=== PATIENT | female | born 1965 | race Caucasian/White ===

== ENCOUNTER → 2016-06-13 | Outpatient (CLI) | payer BC ==
[~2016-06-13] MED LIST: ESCI1TAB10 PO; OXYC-57 PO
== END | disposition home or self-care (01) ==
LOC: C.PAPS 11:31
PROVIDERS: ATTEND Nurse Practitioner Family
DX: Z01.419 Encounter for gynecological examination (general) (routine) without abnormal findings (principal)

== ENCOUNTER → 2016-06-15 | Outpatient (CLI) | payer BC ==
--- NOTE | 2016-06-15 08:58 | Discharge Instructions ---
Discharge Instructions Procedure Procedure Date: Jun 15, 2016. Reason for visit: Left Mass. Discharge Discharge Date: Jun 15, 2016. Discharge Diagnosis: status post breast biopsy Instructions Activity Recommendations: Additional Limitations (see below) Return to School/Work: no limitations Recommended Home Diet: No Limitations Provider Instructions: ACTIVITY RECOMMENDATIONS: * No lifting, pushing, pulling or exercising the affected side for three days. RETURN TO SCHOOL/WORK: * You may return to work/school after the procedure, but do not perform any strenuous activities for 24 to 48 hours. MEDICATIONS: * Tylenol (two 325 mg) every four to six hours if needed for mild pain (if not allergic to Tylenol). DIET: * Resume previous diet. SPECIAL CARE INSTRUCTIONS: * Keep biopsy site dry for 24 hours. May shower after 24 hours, but do not soak (bathe) incision. * May remove Tegaderm (plastic patch) tomorrow AFTER showering. * Leave the steri-strips on for one week. Allow the steri-strips to fall off by themselves. If not off after one week, you may remove them. You may place a Bandaid crosswise over the strips, if desired. * Apply ice 10 minutes on and 10 minutes off as needed. * Wear a bra at bedtime to sleep more comfortably for 2-3 days. * Your referring physician should have the results after approximately 5 to 7 business days. * Call for unusual bleeding, fever, drainage, etc or if you have any questions call during normal business hours or after hours call Dr Botello, [phone]. FOLLOW UP VISIT: Follow-up with Referring Physician as scheduled. Allergies Coded Allergies: Codeine (Verified Allergy, Mild, 07/16/09) Alexandro Hoskins Recommendations: Call your doctor if: * Temperature above 101 degrees * Pain not relieved by pain medicine ordered * There is increased drainage or redness from any incision * You have any unanswered questions or concerns. Your Doctors Instructions noted above were prepared by provider Indira Botello. Patient Signature Section: Patient Instructions Signature Page Omaira Guajardo Patient (or Guardian) Signature/Date: I have read and understand the instructions given to me by my caregivers. Caregiver/RN/Doctor Signature/Date: The above-named patient and/or guardian has received patient instructions on this date. + Original Patient Signature Page (only) stays with chart. Please make copy for patient.
--- NOTE | 2016-06-15 13:45 | MAMMOGRAPHY REPORT ---
THIS REPORT HAS BEEN AMENDED. ULTRASOUND GUIDED BIOPSY LEFT BREAST: 06/15/2016 CLINICAL HISTORY: Abnormal hypoechoic region in the left 2 o'clock breast. PATIENT CONSENT: The procedure, risks and benefits were discussed with the patient and informed writ ten consent was obtained. A timeout was performed immediately prior to the procedure. PROCEDURE DESCRIPTION: With ultrasound guidance, aseptic technique, and lidocaine as the local anest hetic (1% lidocaine to anesthetize the skin and 1% lidocaine with epinephrine to anesthetize the jean claude per tissues), the area of concern in the left 2:00 breast was sampled 5 times with a 14-gauge Achiev e biopsy needle. Immediately thereafter, with ultrasound guidance, aseptic technique, and lidocain e as the local anesthetic, a metallic localizer clip was placed at the biopsy site. Direct pressure was applied to the site immediately post procedure and hemostasis was achieved. Postprocedure unil ateral mammograms were performed to confirm placement of the clip in the expected location of the br east mass. The patient tolerated the procedure without complication. She was given wound care inst ructions. The specimens were sent to pathology for analysis. COMPARISON: Comparison is made to exams dated: 06/07/2016 ultrasound, 06/07/2016 mammogram, 016 mammogram, 11/06/2012 mammogram, 05/15/2012 mammogram, and 11/03/2011 mammogram - [facility]. IMPRESSION: ULTRASOUND GUIDED BIOPSY Ultrasound-guided core needle biopsy of the hypoechoic region in the left 2:00 breast, with clip naty cement. The patient will receive pathology results from her referring physician. Indira Botello M.D. ah/:06/15/2016 09:03:45 Manufacturers Representative: Terra Mcgowan [facility] AMENDMENT: 06/28/2016 Indira Botello M.D. Pathology from ultrasound-guided biopsy of the left 2:00 hypoechoic region was reviewed on 06/28/2016 . The pathology shows benign fibrocystic changes without evidence of malignancy. The needle was sh own to pass through the area multiple times on the biopsy images. Recommend follow-up diagnostic to mosynthesis mammograms of the left breast and possible ultrasound in 6 months to ensure stability.
--- NOTE | 2016-06-15 13:47 | MAMMOGRAPHY REPORT ---
UNILATERAL LEFT DIGITAL DIAGNOSTIC MAMMOGRAM: 06/15/2016 CLINICAL HISTORY: Status post ultrasound-guided biopsy of the left 2:00 hypoechoic region. TECHNIQUE: Postprocedural left CC and ML views were obtained. COMPARISON: Comparison is made to exams dated: 06/07/2016 mammogram, 06/01/2016 mammogram, 3 mammogram, and 05/15/2012 mammogram - [facility]. BREAST COMPOSITION: There are scattered areas of fibroglandular density in the left breast. FINDINGS: A new biopsy marker clip is seen in the left upper outer quadrant at the site of the biop sied hypoechoic region in the left breast at 2:00. The biopsy clip is located at the site of the ar chitectural distortion seen mammographically, indicating good correlation between the biopsied sonog raphic finding and the mammographic distortion. No significant postbiopsy hematoma is seen. IMPRESSION: POST PROCEDURE IMAGING FOR MARKER PLACEMENT New biopsy marker clip status post ultrasound guided biopsy of the left 2:00 hypoechoic region. Pat hology results are pending. Approximately 10% of breast cancers are not detected with mammography. A negative mammographic repor t should not delay biopsy if a clinically suggestive mass is present. Indira Botello M.D. /:06/15/2016 09:09:49 Railroad Car Cleaner: Terra Mcgowan, [facility] BI-RADS Code: Post Procedure Imaging For Marker Placement
== END | disposition home or self-care (01) ==
LOC: C.MAMM 08:29
PROVIDERS: ATTEND Obstetrics & Gynecology
DX: R92.8 Other abnormal and inconclusive findings on diagnostic imaging of breast (principal); N63 Unspecified lump in breast

== ENCOUNTER → 2017-01-29 | Outpatient (CLI) | payer BC ==
[~2017-01-29] MED LIST changes: -OXYC-57 PO
--- NOTE | 2017-01-29 15:25 | MAMMOGRAPHY REPORT ---
UNILATERAL LEFT DIGITAL DIAGNOSTIC MAMMOGRAM TOMOSYNTHESIS WITH CAD AND TARGETED LEFT ULTRASOUND: 01/10 CLINICAL HISTORY: 51-year-old woman presents for follow-up in the left breast. She was initially fou nd to have possible area of architectural distortion in the left upper outer posterior breast with hy poechoic shadowing area thought to correspond in the 2:00 left breast on ultrasound. This area was s ubsequently biopsied and yielded benign fibrocystic changes, no evidence of malignancy. TECHNIQUE: Left breast tomosynthesis in addition to standard 2D mammography was performed. Current st udy was also evaluated with a Computer Aided Detection (CAD) system. COMPARISON: Comparison is made to exams dated: 06/15/2016 ultrasound biopsy, 06/15/2016 mammogram, 06/07 ultrasound, 06/07/2016 mammogram, 06/01/2016 mammogram, and 11/06/2012 mammogram - [facility]. BREAST COMPOSITION: There are scattered areas of fibroglandular density in the left breast. FINDINGS: On the 2-D views, the parenchymal pattern of the dense glandular tissue is similar comparin g to prior mammograms, particularly the 11/03/2011. There is an asymmetry in the superior left breas t on the MLO view that appears nearly identical to the 2012 mammogram. There is a stable ribbon shap ed metallic biopsy marker associated with a focal asymmetry in the left upper outer quadrant. On the tomosynthesis images there is possible architectural distortion within the focal asymmetry, best sandrita reciated on the MLO view. No definite corresponding distortion is seen on the current CC view. No o ther suspicious mass, focal area of distortion or new suspicious calcifications are seen in the left breast. Repeat targeted ultrasound was performed in the 2:00 left breast, 8 cm from the nipple, in the area o f prior biopsy of an ill-defined hypoechoic shadowing lesion. This area is again seen and measures a pproximately 8 x 15 mm, similar to the prior ultrasound dated 06/07/2016. No other new suspicious ma ss is identified. IMPRESSION: ACR-BI-RADS CATEGORY 3: PROBABLY BENIGN, TARGETED ULTRASOUND ACR-BI-RADS CATEGORY 3: PRO BABLY BENIGN Stable mammographic appearance of the left breast including a stable focal asymmetry with possible as sisted architectural distortion and new associated biopsy marker clip in the 2:[address] The possible area of distortion is less conspicuous on the current tomosynthesis images and path ology results are considered concordant. However, another short interval follow-up left diagnostic m ammogram and possible ultrasound is recommended in 6 more months to ensure longer stability. Annual right mammography will also be due at that time. These results and recommendations were discussed with the patient at the time of the exam. Approximately 10% of breast cancers are not detected with mammography. A negative mammographic report should not delay biopsy if a clinically suggestive mass is present. Nandiin Flowers M.D. ay/:01/29/2017 13:46:54 Cadet Deck: Shwetha NINA(Ayden)(M), [facility] letter sent: Follow Up Recommended 3 BI-RADS Code: ACR-BI-RADS Category 3: Probably Benign Ultrasound BI-RADS: ACR-BI-RADS Category 3: Pr obably Benign
== END | disposition home or self-care (01) ==
LOC: C.MAMM 12:33
PROVIDERS: ATTEND Obstetrics & Gynecology
DX: N64.9 Disorder of breast, unspecified (principal)

== ENCOUNTER → 2017-08-21 | Outpatient (CLI) | payer OTHER ==
--- NOTE | 2017-08-21 15:13 | MAMMOGRAPHY REPORT ---
BILATERAL DIGITAL DIAGNOSTIC MAMMOGRAM TOMOSYNTHESIS WITH CAD: 08/21/2017 CLINICAL HISTORY: 51-year-old woman presents at time of annual exam and also to follow-up an asymmetr y with possible associated distortion in the upper outer quadrant of the left breast, previously biop sied with ultrasound guidance and yielded benign pathology results. TECHNIQUE: Bilateral breast tomosynthesis in addition to standard 2D mammography was performed. Curre nt study was also evaluated with a Computer Aided Detection (CAD) system. COMPARISON: Comparison is made to exams dated: 01/29/2017 ultrasound, 01/29/2017 mammogram, 06/15/2016 m ammogram, 06/07/2016 mammogram, 06/01/2016 mammogram, and 11/06/2012 mammogram - [facility]. BREAST COMPOSITION: There are scattered areas of fibroglandular density in both breasts. FINDINGS: There is a ribbon-shaped biopsy marker clip associated with a 2 cm asymmetry in the upper o uter posterior left breast, best visualized on the MLO view. On the current exam, there is no defini te persistent associated architectural distortion. The 2D appearance is similar to numerous prior ma mmograms including the 2011 and 2007 mammograms. Given the mammographic stability, no persistent dist ortion and benign pathology results, this finding is considered benign and no further close follow-up is needed at this time. No new suspicious masses, calcifications, asymmetries or areas of architectu ral distortion are identified bilaterally. IMPRESSION: ACR BI-RADS CATEGORY 2: BENIGN Stable bilateral mammograms including an asymmetry in the superior left breast on the MLO view, with associated ribbon-shaped biopsy marker clip. The asymmetry appears similar dating back to 2007 and t here is no persistent associated architectural distortion. Given this stability and benign pathology results this finding is considered benign and no close follow-up is needed at this time. Recommend follow-up at time of next annual screening mammogram. Approximately 10% of breast cancers are not detected with mammography. A negative mammographic report should not delay biopsy if a clinically suggestive mass is present. Nandini Flowers M.D. ay/:08/21/2017 12:21:06 Kitchen Food Server: Ap NINA(R)(M), [facility] letter sent: Normal 1/2 BI-RADS Code: ACR BI-RADS Category 2: Benign
== END | disposition home or self-care (01) ==
LOC: C.MAMM 10:52
PROVIDERS: ATTEND Obstetrics & Gynecology
DX: N64.9 Disorder of breast, unspecified (principal)

== ENCOUNTER 2019-07-24 20:02 | Observation (INO) ==
[2019-07-24] MEDS ORDERED: FAMOTIDINE 20MG/5ML IV PUSH IV STA (22:20)
[2019-07-24] MEDS ORDERED: SODIUM CHLORIDE 0.9% 1000ML 1,000 ML IV SCH (22:30)
[2019-07-24] MEDS ORDERED: PANTOprazole 40 MG in SYRINGE 0 ML IV STA (22:42)
[2019-07-24 22:45] LABS: Basophils # (auto) 0.01 K/uL (0-0.2); Basophils % (auto) 0.2 %; Eosinophils # (auto) 0.02 K/uL (0-0.5); Eosinophils % (auto) 0.4 %; Hematocrit (blood only) 40.5 % (37-47); Hemoglobin 13.8 g/dL (12.0-16.0); Immature Granulocytes # (auto) 0.01 K/uL (0.00-0.02); Immature Granulocytes % (auto) 0.2 %; Lymphocytes # (auto) 1.06 K/uL (1.2-3.4); Lymphocytes % (auto) 18.7 %; Mean Corpuscular Hemoglobin 31.1 pg (25-34); Mean Corpuscular Hgb Conc 34.1 g/dL (32-36); Mean Corpuscular Volume 91.2 fL (80-100); Mean Platelet Volume 9.5 fL (7.4-10.4); Monocytes # (auto) 0.51 K/uL (0.11-0.59); Neutrophils # (auto) 4.06 K/uL (1.4-6.5); Neutrophils % (auto) 71.5 %; Platelet Count 267 K/uL (130-400); RDW Coefficient of Variation 13.4 % (11.5-14.5); RDW Standard Deviation 44.8 fL (36.4-46.3); Red Blood Count 4.44 M/uL (4.2-5.4); White Blood Count 5.67 K/uL (4.8-10.8)
[2019-07-24 22:57] LABS: Partial Thromboplastin Ratio 1.1; Partial Thromboplastin Time 29.3 Seconds (21.0-31.0); Prothrombin Time 10.1 Seconds (9.0-12.0)
[2019-07-24 23:03] LABS: Albumin Level 4.1 gm/dl (3.4-5.0); BUN Creatinine Ratio 24.5 (10-20); Calcium 9.2 mg/dl (8.5-10.1); Creatinine Clr Calc Pharmacy 103.2 ml/min; Est GFR (African American) 113.8; Est GFR (Non-African American) 98.2; Potassium 3.3 mmol/L (3.5-5.1)
[2019-07-24 23:05] LABS: Albumin Globulin Ratio 1.1 (0.9-2); Bilirubin,Total 0.4 mg/dl (0.2-1); Globulin 3.7 gm/dl (2.5-4.0); Total Protein 7.8 gm/dl (6.4-8.2)
[2019-07-24 23:07] LABS: Influenza B virus by PCR Neg for Influ B (Neg)
--- NOTE | 2019-07-25 00:40 | Emergency Department Note ---
History of Present Illness General Chief complaint: Flu Like Symptoms Stated complaint: FLU, VOMITING BLOOD History of Present Illness Maximum Pain Intensity: 2 This 53-year-old presents to the ER complaining of fever, chills, cough, congestion, nausea and vomiting and hematemesis Location: Generalized Quality: Achy Severity: Moderate Duration: Past few days Timing: Started a few days ago Context: Patient started vomiting blood today and came in Modifying factors: better with nothing; worse with activity Patient called the family doctor and was advised to come to the ER. Patient states that she had 1 episodes of vomiting yesterday with no blood in it. She states today she had 3 episodes of blood with bright red blood and dark blood in it. No history of bleeding ulcers. Patient took 1 Advil this week. No other antiplatelet medicines. T-max 101. No recent travel. No exposure to anyone at risk of back from [place]. Patient denies chest pain, dyspnea, black stool, bloody stool, abdominal pain, neck stiffness, sore throat. No post nasal drip. No bloody nose. No history of GI bleeding. Normal colonoscopy last year. Home Medications Home Medications Medication Instructions Recorded Confirmed Type albuterol sulfate 1 inh INHALATION QID PRN 08/30/18 07/24/19 History multivitamin 1 tab PO QAM 08/30/18 07/24/19 History paroxetine HCl [Paxil] 30 mg PO QAM 08/30/18 07/24/19 History Nasal Mist 1 spray INTRANASAL DAILY PRN 01/27/19 07/24/19 History cetirizine [Zyrtec] 10 mg PO QAM 01/27/19 07/24/19 History fluticasone propionate [Flonase 1 spray INTRANASAL DAILY 01/27/19 07/24/19 History Allergy Relief] glucosamine-chondroitin [Osteo 2 tab PO DAILY 01/27/19 07/24/19 History Bi-Flex] acetaminophen [Tylenol Extra 1,000 mg PO Q6H PRN 07/24/19 07/24/19 History Strength] Allergies Allergy/AdvReac Type Severity Reaction Status Date / Time codeine Allergy Mild Gastrointestinal Verified 07/24/19 22:30 Upset Past Med/Surg History Medical History Anxiety Asthma RARELY NEEDS PRN INH IBS (irritable bowel syndrome) Osteoarthritis Surgical History History of breast biopsy History of carpal tunnel release bilateral History of section History of colonoscopy History of dilatation and curettage History of tooth extraction Family History Father Family hx of colon cancer Social History Preferred Language: Thai Communication Ability: Effective Bail Bonding Agent Required: No Beliefs That Will Affect Care: None Current Living Situation: Spouse and Family Feels Safe at Home: Yes Smoking Status: Former smoker Second Hand Exposure: No ; Hx Alcohol Use: Yes Alcohol type: wine Hx Substance Use: No Review of Systems A total of 10 systems reviewed and were otherwise negative Physical Exam Vital Signs Vital Signs - 24 hr 07/24/19 20:29 07/24/19 22:02 07/24/19 23:02 Temperature 36.8 C 37.2 C Temperature Source Oral Oral Pulse Rate 79 Pulse Rate [Right Finger] 61 68 Respiratory Rate 20 20 18 Respiratory Effort / Characteristics Non-Labored Spontaneous Non-Labored Spontaneous Respiratory Depth Normal Normal Respiratory Pattern Regular Blood Pressure 118/70 Blood Pressure [Right Arm] 127/79 115/77 Blood Pressure Mean 86 Blood Pressure Mean [Right Arm] 95 89 Blood Pressure Position [Right Arm] Lying Pulse Oximetry 98 95 95 Oxygen Delivery Method Room Air Room Air Room Air Sepsis Action Taken by Nursing No Action Required VITALS: Vitals are noted on the nurse's note and reviewed by myself. Vital signs stable. GENERAL: Pleasant female, in no acute distress, nondiaphoretic, well-developed well-nourished. SKIN: The skin was without rashes, erythema, edema, or bruising. There is no tenting of the skin. Capillary reflex less than 2 seconds. HEAD: Normocephalic atraumatic. EARS: External auditory canals clear, tympanic membranes pearly [place]ville without erythema or effusion bilaterally. EYES: Pupils equal round and reactive to light and accommodation. Conjunctivae without injection, sclerae without icterus. Extraocular movements intact. NOSE: Patent, turbinates without inflammation or discharge. No sinus tenderness. MOUTH: Mucous membranes moist. Pharynx without erythema or exudate. Uvula midline. Airway patent. Tongue does not deviate. NECK: Supple without nuchal rigidity. No lymphadenopathy. No thyromegaly. Cervical spine is nontender. No JVD. HEART: Regular rate and rhythm LUNGS: Clear to auscultation bilaterally without wheezes, rales or rhonchi. No retractions or accessory muscle use. ABDOMEN: Positive bowel sounds x 4. Normal tympanic percussion. Soft, nontender, without masses or organomegaly. Arellano sign negative. No guarding or rebound tenderness. No CVA tenderness Rectal exam: Brown stool guaiac negative. No fissures or tears. MUSCULOSKELETAL: No muscle atrophy, erythema, or edema noted. NEURO: Patient was alert and oriented to person place and time. Normal sensation to light and sharp touch. No focal neurological deficits. Course Administered Medications Sodium Chloride (Nss 1000ml) 1,000 mls @ 100 mls/hr IV .Q10H KELLY Stop: 07/25/19 08:29 Last Admin: 07/24/19 23:04 Dose: 100 mls/hr Documented by: [id number] Discontinued Medications Famotidine (Pepcid 20mg Iv Push) 20 mg IV ONE STA Stop: 07/24/19 22:21 Last Admin: 07/24/19 23:05 Dose: 20 mg Documented by: [id number] Pantoprazole Sodium 40 mg/ (Syringe) 10 mls @ 5 mls/min IV ONE STA Stop: 07/24/19 22:43 Last Admin: 07/24/19 23:02 Dose: 5 mls/min Documented by: [id number] Medical Decision Making Medical Records Attestation: I reviewed the patient's medical records. Home Medications Current Medication List: was personally reviewed by me Laboratory Data Attestation: I reviewed the patient's lab results. Result diagrams: 07/24/19 22:29 07/24/19 22:29 Lab Results 07/24/19 07/24/19 07/24/19 Range/Units 22:29 22:29 22:29 WBC 5.67 (4.8-10.8) K/uL RBC 4.44 (4.2-5.4) M/uL Hgb 13.8 (12.0-16.0) g/dL Hct 40.5 (37-47) % MCV 91.2 (80-100) fL MCH 31.1 (25-34) pg MCHC 34.1 (32-36) g/dL RDW Std Deviation 44.8 (36.4-46.3) fL RDW Coeff of Jeronimo 13.4 (11.5-14.5) % Plt Count 267 (130-400) K/uL MPV 9.5 (7.4-10.4) fL Immature Gran % (Auto) 0.2 % Neut % (Auto) 71.5 % Lymph % (Auto) 18.7 % Mayes % (Auto) 9.0 % Eos % (Auto) 0.4 % Baso % (Auto) 0.2 % Immature Gran # (Auto) 0.01 (0.00-0.02) K/uL Neut # (Auto) 4.06 (1.4-6.5) K/uL Lymph # (Auto) 1.06 L (1.2-3.4) K/uL Mayes # (Auto) 0.51 (0.11-0.59) K/uL Eos # (Auto) 0.02 (0-0.5) K/uL Baso # (Auto) 0.01 (0-0.2) K/uL PT 10.1 (9.0-12.0) Seconds INR 1.0 (0.9-1.1) APTT 29.3 (21.0-31.0) Seconds PTT Ratio 1.1 Sodium (136-145) mmol/L Potassium (3.5-5.1) mmol/L Chloride (98-107) mmol/L Carbon Dioxide (21-32) mmol/L Anion Gap (3-11) BUN (7-18) mg/dl Creatinine (0.6-1.2) mg/dl Est Cr Clr Drug Dosing ml/min Est GFR ( Amer) Est GFR (Non-Af Amer) BUN/Creatinine Ratio (10-20) Glucose (70-99) mg/dl Calcium (8.5-10.1) mg/dl Magnesium (1.8-2.4) mg/dl Total Bilirubin (0.2-1) mg/dl AST (15-37) U/L ALT (12-78) U/L Alkaline Phosphatase (45-117) U/L Total Protein (6.4-8.2) gm/dl Albumin (3.4-5.0) gm/dl Globulin (2.5-4.0) gm/dl Albumin/Globulin Ratio (0.9-2) Lipase (73-393) U/L POC Stool Occult Blood (Negative) Influenza Type A (PCR) (Neg) Influenza Type B (PCR) (Neg) Blood Type A Positive Antibody Screen NEGATIVE 07/24/19 07/24/19 07/24/19 Range/Units 22:29 22:30 Unknown WBC (4.8-10.8) K/uL RBC (4.2-5.4) M/uL Hgb (12.0-16.0) g/dL Hct (37-47) % MCV (80-100) fL MCH (25-34) pg MCHC (32-36) g/dL RDW Std Deviation (36.4-46.3) fL RDW Coeff of Jeronimo (11.5-14.5) % Plt Count (130-400) K/uL MPV (7.4-10.4) fL Immature Gran % (Auto) % Neut % (Auto) % Lymph % (Auto) % Mayes % (Auto) % Eos % (Auto) % Baso % (Auto) % Immature Gran # (Auto) (0.00-0.02) K/uL Neut # (Auto) (1.4-6.5) K/uL Lymph # (Auto) (1.2-3.4) K/uL Mayes # (Auto) (0.11-0.59) K/uL Eos # (Auto) (0-0.5) K/uL Baso # (Auto) (0-0.2) K/uL PT (9.0-12.0) Seconds INR (0.9-1.1) APTT (21.0-31.0) Seconds PTT Ratio Sodium 136 (136-145) mmol/L Potassium 3.3 L (3.5-5.1) mmol/L Chloride 101 (98-107) mmol/L Carbon Dioxide 25 (21-32) mmol/L Anion Gap 10.0 (3-11) BUN 17 (7-18) mg/dl Creatinine 0.70 (0.6-1.2) mg/dl Est Cr Clr Drug Dosing 103.2 ml/min Est GFR ( Amer) 113.8 Est GFR (Non-Af Amer) 98.2 BUN/Creatinine Ratio 24.5 H (10-20) Glucose 89 (70-99) mg/dl Calcium 9.2 (8.5-10.1) mg/dl Magnesium 2.0 (1.8-2.4) mg/dl Total Bilirubin 0.4 (0.2-1) mg/dl AST 20 (15-37) U/L ALT 27 (12-78) U/L Alkaline Phosphatase 74 (45-117) U/L Total Protein 7.8 (6.4-8.2) gm/dl Albumin 4.1 (3.4-5.0) gm/dl Globulin 3.7 (2.5-4.0) gm/dl Albumin/Globulin Ratio 1.1 (0.9-2) Lipase 161 (73-393) U/L POC Stool Occult Blood Negative (Negative) Influenza Type A (PCR) Pos for Influ A A* (Neg) Influenza Type B (PCR) Neg for Influ B (Neg) Blood Type Antibody Screen Imaging Data Attestation: I personally reviewed and interpreted this imaging study as follows: MDM Narrative Prior records/ancillary studies reviewed. Triage Nursing notes reviewed. Additional history obtained from the family. The patient's history was concerning for possible gastrointestinal bleeding and flulike illness. Differential diagnosis: Etiologies such as influenza, pneumonia, diverticulosis, AVM, coagulopathy, colitis, inflammatory bowel disease, malignancy, Denisse-David tear, esophagitis, peptic ulcer disease, variceal bleed, gastritis, epistaxis, fissure, hemorrhoids, as well as others were entertained. Physical exam: As above. The patients vital signs were stable. ER treatment provided: IV fluids, Protonix, Pepcid On reassessment the patient felt better. Diagnostics interpreted by me: ECG: Ordered for GI bleed EKG: Normal sinus, normal intervals, no acute ST-T wave changes. Impression normal sinus with interpreted by myself I think arrhythmia is unlikely. EKG shows normal sinus rhythm with no interval abnormalities such as QT prolongation or WPW. There are no findings to suggest Brugada syndrome. Cardiac monitoring in the emergency department reveals no tachycardic or bradycardic dysrhythmia. Hypertrophic cardiomyopathy was consid ered but there are no clear historical elements pointing toward this. EKG is not suggestive. The QRS voltage is not extremely large and there are no suggestive Q waves. The labs revealed stable H&H, positive flu a Imaging studies: Chest x-ray with no acute consolidation, pneumothorax or free air per my intubation Consultation: A consultation was placed with Dr Briceño, hospitalist. The case was discussed and diagnostics were reviewed. The patient was evaluated in the ER for further treatment. This appears to be consistent with influenza with probable Denisse-David tear. Patient was started on a PPI. She has had no episodes of vomiting in the ER. Guaiac was negative. Stable H&H. She has been sick for several days. She is outside the window to treat with Tamiflu. Medicine was consulted. Patient is agreeable treatment plan of admission. by the evaluation outlined above emergent etiologies such as esophageal perforation, variceal bleed, coagulopathy, epistaxis, malignancy, inflammatory bowel disease, as well as others were deemed relatively unlikely. The pt informed about the findings as listed above. All questions were answered and pleased with the treatment. The chart was completed utilizing [employer] Speech voice recognition software. Grammatical errors, random word insertions, pronoun errors, and incomplete sentences are an occassional consequence of this system due to software limitations, ambient noise, and hardware issues. Any formal questions or concerns about the content, text, or information contained within the body of this dictation should be directly addressed to the physician digital sales assistant for clarification. Impression & Plan Influenza, Denisse-David tear Discharge Plan Visit Data Chief Complaint: Flu Like Symptoms Stated Complaint: FLU, VOMITING BLOOD ED Provider: Ramsey Chris ED Midlevel Provider: Katie Iglesias Discharge Problem: Influenza, Denisse-David tear Patient Disposition: Being Evaluated by Hospitalist Condition: Fair Forms Stand Alone Forms: [facility] Prescriptions Prescriptions: No Action paroxetine HCl [Paxil] 30 mg Tablet 30 mg PO QAM RF: 0 multivitamin Tablet 1 tab PO QAM RF: 0 albuterol sulfate 90 mcg/actuation Aerosol Powdr Breath Activated 1 inh INHALATION QID PRN (Reason: Shortness Of Breath) RF: 0 cetirizine [Zyrtec] 10 mg Tablet 10 mg PO QAM RF: 0 fluticasone propionate [Flonase Allergy Relief] 50 mcg/actuation Sanders,Suspension 1 spray INTRANASAL DAILY RF: 0 glucosamine-chondroitin [Osteo Bi-Flex] 250-200 mg Tablet 2 tab PO DAILY RF: 0 Nasal Mist 0.9 % Aerosol,Sanders 1 spray INTRANASAL DAILY PRN (Reason: Allergy Symptoms) RF: 0 acetaminophen [Tylenol Extra Strength] 500 mg Tablet 1,000 mg PO Q6H PRN (Reason: Pain) RF: 0 Referrals Referrals: Dana Rodrigues CRNP [Primary Care Provider] -
--- NOTE | 2019-07-25 01:01 | History & Physical Report ---
Date of Service July 25, 2019 Assessment & Plan (1) Influenza: Omaira is a 53-year-old female with past medical history of asthma who presents with influenza A and an episode of hematemesis following multiple episodes of vomiting. Hematemesis suspect 2/2 Denisse-David tear First episode after multiple episodes of vomiting, dry heaving as noted in HPI No pain, abdomen benign and nontender on exam Patient has a history of reflux with intermittent PPI use, differential includes gastric/duodenal ulcer H&H every 8 hours Famotidine IV push x1 Protonix daily Flu treatment as below Follow clinically, defer GI consultation at this time Influenza A Isolation precautions symptom onset more than 48 hours prior to admission, patient also sensitive to nausea/vomiting. Tamiflu deferred IV FM half-normal saline +20 KCl at 125 cc/h received IV fluid boluses in ED. Clinically dry on exam. Supportive care, patient clinically improving and convalescing by time of admission Hypokalemia Due to poor p.o. intake due to flu a with vomiting IV fluids as above, potassium p.o. 20 M EQ twice daily Magnesium normal on admit Anxiety/depression Continue paroxetine 30 mg p.o. every morning DVT prophylaxis: SCDs Diet: Clear liquids, no red dye Disposition: Medr (2) Denisse-David tear: History of Present Illness Chief Complaint: Hematemesis Primary Care Provider: CUONG Baca Patient is a 53-year-old female with past medical history of exercise-induced asthma who presents with hematemesis following multiple episodes of vomiting with rapid flu positive for influenza A. She reports her symptoms began on Sunday when she developed fever, chills, sweats, whole body aches, Reiger's, loose bowels, and nausea with "projectile "vomiting. She reports that initially her vomiting was clear and she had multiple episodes of dry heaving. After her third episode of emesis 1 day ago she had a small bright red spot in her emesis which she discussed with her PCP and was provided reassurance. On day of admission she had another episode of emesis which had dark red/brown blood and mucus, a second episode of vomiting w as productive for "about 1/4 cup of bright red whole blood ". She reports that she does not have stomach pain, and her nausea is improving, but the blood scared her. She has a history of reflux for which she intermittently takes antacids. Over the course of this illness she has taken Tylenol 61 dose of Aleve. She does not normally use NSAIDs. No bright red blood per rectum or melena. Past medical history: Exercise-induced asthma, recurrent sinus infections Past surgical history: Sinus balloon angioplasty in January, rest of her history reviewed Allergies: Codeine Social history: Alcohol use, no current or former tobacco use, no recreational drug use. She lives at home and has 4 children. Family history: Reviewed, noncontributory Allergies Allergy/AdvReac Type Severity Reaction Status Date / Time codeine Allergy Mild Gastrointestinal Verified 07/24/19 22:30 Upset Home Medications Home Medications Medication Instructions Recorded Confirmed Type albuterol sulfate 1 inh INHALATION QID PRN 08/30/18 07/24/19 History multivitamin 1 tab PO QAM 08/30/18 07/24/19 History paroxetine HCl [Paxil] 30 mg PO QAM 08/30/18 07/24/19 History Nasal Mist 1 spray INTRANASAL DAILY PRN 01/27/19 07/24/19 History cetirizine [Zyrtec] 10 mg PO QAM 01/27/19 07/24/19 History fluticasone propionate [Flonase 1 spray INTRANASAL DAILY 01/27/19 07/24/19 History Allergy Relief] glucosamine-chondroitin [Osteo 2 tab PO DAILY 01/27/19 07/24/19 History Bi-Flex] acetaminophen [Tylenol Extra 1,000 mg PO Q6H PRN 07/24/19 07/24/19 History Strength] Past Med/Surg History Medical History Anxiety Asthma RARELY NEEDS PRN INH IBS (irritable bowel syndrome) Osteoarthritis Surgical History History of breast biopsy History of carpal tunnel release bilateral History of section History of colonoscopy History of dilatation and curettage History of tooth extraction Family History Father Family hx of colon cancer Social History Preferred Language: Syrian Communication Ability: Effective Strategic Account Director Required: No Beliefs That Will Affect Care: None Current Living Situation: Alone Other Information That Helps Us Care for You: Yes Feels Safe at Home: Yes Smoking Status: Former smoker Second Hand Exposure: No ; Hx Alcohol Use: No Hx Substance Use: No Review of Systems Review of Systems: All systems reviewed & are unremarkable except as noted in HPI & below Physical Exam Physical Exam: General: A&Ox3. NAD. Cooperative. HEENT: Atraumatic, normocephalic. Pupils equal and responsive to light and accommodation. Visual acuity grossly intact. Hearing grossly intact. No facial asymmetry. No oral mucosal lesions. Posterior pharynx without blood or exudate. His membranes dry. Pulm: CTAB A&P. -wheezes, -rales, -rhonchi. Symmetrical chest rise. No increase work of breathing. No respiratory distress. Cardiac: RRR, -mrg. Radial pulses intact and symmetrical. Abdominal: Nontender, nondistended, soft. BS present. Extremities: Warm, dry. Radial pulse and PT pulse intact and symmetrical bilaterally. Sensation grossly intact in all extremities, 5/5 manager portable strength, ankle plantar flexion, ankle dorsiflexion. Results & Data Vital Signs (Past 12 Hours) Vital Signs Temp Pulse Pulse Resp BP BP Pulse Ox 07/24/19 23:02 68 18 115/77 95 07/24/19 22:02 37.2 C 61 20 127/79 95 07/24/19 20:29 36.8 C 79 20 118/70 98 Supervising Physician Co-Signing Physician Notes Patient was seen and examined by me personally. I reviewed the chart, the orders and discussed the case in detail with Dr. Cirilo Olivera MD . I read this H&P and agree with its contents to entirety. Resident Activity Tracking Resident Involvement: Resident Care Provided Care Provided: Adult Hospital Medicine
[2019-07-25] MEDS ORDERED: PANTOprazole 40 MG TAB PO STA (01:18)
[2019-07-25] MEDS ORDERED: ACETAMINOPHEN 325 MG TAB PO PRN (01:18)
[2019-07-25] MEDS ORDERED: FAMOTIDINE 20 MG in SYRINGE 3 ML IV ONE (01:30)
[2019-07-25] MEDS: ONDANSETRON INJ 2 MG/ML 2 ML VIAL IV PRN ×2 (01:32→15:12)
[2019-07-25] MEDS: POTASSIUM CHLORIDE 20 MEQ TABCR PO SCH ×2 (01:41→08:41)
[2019-07-25] MEDS: SODIUM CHLOR 0.45% + 20MEQ KCL 20 MEQ/1,000 ML BAG IV SCH ×3 (01:47→16:14)
[2019-07-25] MEDS ORDERED: INFLUENZA ADMINISTRATION CHARGE ONE (02:13)
[2019-07-25] MEDS ORDERED: INFLUENZA VIRUS QUAD VACCINE 0.5 ML SYR IM ONE (02:13)
[2019-07-25 06:23] LABS: Hematocrit (blood only) 37.3 % (37-47); Hemoglobin 12.7 g/dL (12.0-16.0); Mean Corpuscular Hemoglobin 30.8 pg (25-34); Mean Corpuscular Volume 90.3 fL (80-100); Mean Platelet Volume 9.1 fL (7.4-10.4); Platelet Count 279 K/uL (130-400); RDW Coefficient of Variation 13.5 % (11.5-14.5); RDW Standard Deviation 44.6 fL (36.4-46.3); Red Blood Count 4.13 M/uL (4.2-5.4); White Blood Count 3.85 K/uL (4.8-10.8)
[2019-07-25 06:51] LABS: BUN Creatinine Ratio 23.2 (10-20); Calcium 8.5 mg/dl (8.5-10.1); Creatinine Clr Calc Pharmacy 122.8 ml/min; Est GFR (African American) 120.4; Est GFR (Non-African American) 103.9; Potassium 3.6 mmol/L (3.5-5.1)
--- NOTE | 2019-07-25 06:53 | XRay Report ---
XR chest 2V PA/lateral CLINICAL HISTORY: 53 years-old Female presenting with cough/fever. TECHNIQUE: PA and lateral views of the chest were obtained. COMPARISON: 09/07/2007. FINDINGS: Cardiomediastinal silhouette normal. Lungs and pleural spaces clear. Osseous structures normal. Upper abdomen normal. IMPRESSION: 1. No acute cardiopulmonary disease. ACT 112: Negative or not required by law. Electronically signed by: Cirilo Tobar M.D. 07/25/2019 6:52 AM
--- NOTE | 2019-07-25 06:56 | Billing Data ---
Date of Service July 25, 2019 Coding Level of Care Code 59140 OBS Care - Level 3
[2019-07-25] MEDS ORDERED: PANTOprazole 40 MG TAB PO SCH (09:00)
[2019-07-25] MEDS ORDERED: PARoxetine HCl 20 MG TAB PO SCH (09:00)
[2019-07-25 13:23] LABS: Hematocrit (blood only) 38.6 % (37-47); Hemoglobin 12.7 g/dL (12.0-16.0); Mean Corpuscular Hemoglobin 30.4 pg (25-34); Mean Corpuscular Hgb Conc 32.9 g/dL (32-36); Mean Corpuscular Volume 92.3 fL (80-100); Mean Platelet Volume 9.6 fL (7.4-10.4); Platelet Count 269 K/uL (130-400); RDW Coefficient of Variation 13.7 % (11.5-14.5); RDW Standard Deviation 46.2 fL (36.4-46.3); Red Blood Count 4.18 M/uL (4.2-5.4); White Blood Count 4.55 K/uL (4.8-10.8)
--- NOTE | 2019-07-25 16:39 | Electrocardiogram Report ---
Test Reason : Blood Pressure : / mmHG Vent. Rate : 061 BPM Atrial Rate : 061 BPM P-R Int : 132 ms QRS Dur : 086 ms QT Int : 414 ms P-R-T Axes : 051 037 040 degrees QTc Int : 416 ms Normal sinus rhythm Nonspecific T wave abnormality Abnormal ECG No previous ECGs available Confirmed by Kevan Dacosta ([id number]) on 07/25/2019 4:38:34 PM Referred By: REFERRED SELF Confirmed By:Kevan Dacosta
--- NOTE | 2019-07-25 18:43 | Discharge Summary ---
Date of Service July 25, 2019 Admission HPI Per Admitting Provider Patient is a 53-year-old female with past medical history of exercise-induced asthma who presents with hematemesis following multiple episodes of vomiting with rapid flu positive for influenza A. She reports her symptoms began on Sunday when she developed fever, chills, sweats, whole body aches, Reiger's, loose bowels, and nausea with "projectile "vomiting. She reports that initially her vomiting was clear and she had multiple episodes of dry heaving. After her third episode of emesis 1 day ago she had a small bright red spot in her emesis which she discussed with her PCP and was provided reassurance. On day of admission she had another episode of emesis which had dark red/brown blood and mucus, a second episode of vomiting was productive for "about 1/4 cup of bright red whole blood ". She reports that she does not have stomach pain, and her nausea is improving, but the blood scared her. She has a history of reflux for which she intermittently takes antacids. Over the course of this illness she has taken Tylenol 61 dose of Aleve. She does not normally use NSAIDs. No bright red blood per rectum or melena. Past medical history: Exercise-induced asthma, recurrent sinus infections Past surgical history: Sinus balloon angioplasty in January, rest of her history reviewed Allergies: Codeine Social history: Alcohol use, no current or former tobacco use, no recreational drug use. She lives at home and has 4 children. Family history: Reviewed, noncontributory Principal Diagnosis Influenza Discharge Exam Constitutional WD/WN, vitals as above Eyes PERRL, conjunctivae normal, anicteric sclerae Respiratory normal respiratory effort and + cough; no respiratory distress, no labored breathing, no audible wheezes and no nasal flaring Auscultation: + crackles Cardiovascular RRR, no murmur, no edema Gastrointestinal (Abdomen) normal bowel sounds, soft, nontender, no hepatosplenomegaly Lymphatic no cervical or axillary lymphadenopathy Discharge Data Allergies Allergy/AdvReac Type Severity Reaction Status Date / Time codeine Allergy Mild Gastrointestinal Verified 07/24/19 22:30 Upset Consultations 07/24/19 23:51 ED Decision to Admit Stat Hospital Course (1) Influenza: Omaira is a 53-year-old female with past medical history of asthma who presents with influenza A and an episode of hematemesis following multiple episodes of vomiting. Hematemesis: - First episode after multiple episodes of vomiting, dry heaving as noted in HPI - No pain, abdomen benign and nontender on exam - Patient has a history of reflux with intermittent PPI use. - Kept on IVF, and IV zofran, PPI and NPO. No bleeding during hospital stay. Dry heaving resolved. Was able to tolerated meal. continue protonix at home daily and zofran as needed for nausea and vomiting Influenza A: - symptom onset more than 48 hours prior to admission, Tamiflu deferred due to nausea and vomiting. - Supportive care, patient clinically improving and convalescing by time of admission Anxiety/depression - Continue paroxetine 30 mg p.o. every morning Total Time Total Time Spent Total Time Spent (In Minutes): 30 Discharge Plan Discharge Items Patient Disposition: Home - Self-Care Reason For Visit: HEMATEMESIS, FLU A Discharge Diagnosis: influenza Condition on Discharge: Fair Activity: Per Instructions section Non-emergency contact: Primary Care Provider Call non-emergency contact if: you have any medication questions and your symptoms worsen Follow-up/Referrals: Dana Rodrigues CRNP [Primary Care Provider] - Diet: Regular Addtl Attending Provider Instructions: You were seen and evaluated following having two episodes of blood in your vomit; as you have the flu, the nausea and vomiting that you have had can be a normal reaction. During this admission, with some continued re-hydration and with some anti-nausea medication and anti-reflux medication, you had considerable improvement. Now that you are being discharged, you are being given two additional medications; one for your reflux that you should continue to take daily, and the other for your nausea that you should take every eight hours as needed for your nausea or vomiting. Pending Studies at Discharge: No Stand-Alone Forms: My [facility] [place], Smoking Cessation Medications and DC Order Prescriptions: New pantoprazole 40 mg Tablet,Delayed Release (Dr/Ec) 40 mg PO DAILY 14 Days Qty: 14 RF: 0 ondansetron HCl [Zofran] 4 mg tablet 4 mg PO Q8H 5 Days Qty: 15 RF: 0 Continued paroxetine HCl [Paxil] 30 mg Tablet 30 mg PO QAM RF: 0 multivitamin Tablet 1 tab PO QAM RF: 0 albuterol sulfate 90 mcg/actuation Aerosol Powdr Breath Activated 1 inh INHALATION QID PRN (Reason: Shortness Of Breath) RF: 0 cetirizine [Zyrtec] 10 mg Tablet 10 mg PO QAM RF: 0 fluticasone propionate [Flonase Allergy Relief] 50 mcg/actuation [place],Suspension 1 spray INTRANASAL DAILY RF: 0 glucosamine-chondroitin [Osteo Bi-Flex] 250-200 mg Tablet 2 tab PO DAILY RF: 0 Nasal Mist 0.9 % Aerosol,[place] 1 spray INTRANASAL DAILY PRN (Reason: Allergy Symptoms) RF: 0 acetaminophen [Tylenol Extra Strength] 500 mg Tablet 1,000 mg PO Q6H PRN (Reason: Pain) RF: 0 Discharge Orders: Discharge Order (Routine); Ordered 07/25/19 Ordered By: Tommy Winkler Admission Data Admit Date/Time: 07/25/19 00:54 Attending Provider: Erinn Mayorga Admit Provider: Cirilo Olivera Primary Care Provider: Dana Rodrigues Other Providers: Singh Briceño Other Interventions: Discharge Summary Assessment (RN) Last Done: 07/25/19 18:35 DC Date/Time DO NOT enter until pt leaves facility: 07/25/19 19:04 Supervising Physician Co-Signing Physician Notes Resident Physician Supervision Note: I independently interviewed and examined the patient and verified the garcia history and physical, reviewed labs and image studies, discussed the case with the resident Dr. Winkler and agree with the findings and care plan. Resident Activity Tracking Resident Involvement: Resident Care Provided Care Provided: Adult Hospital Medicine
== END 2019-07-25 19:04 | disposition home or self-care (01) ==
LOC: 4W 20:02 → ED 20:02 → SUATTDRO 07-25 00:54 → 4W 07-25 01:08